=== PATIENT | male | born 1995 | race Asian ===

== ENCOUNTER 2019-01-07 04:25 | Emergency (ER) | payer OTHER ==
[~2019-01-07] VITALS: Ht 182.9 cm; Wt 102.3 kg
[~2019-01-07 04:25] MED LIST: AMOXICILLIN 8751 TAB PO; AMOXICILLIN875 MG PO; TUSS PO
[2019-01-07 04:38] VITALS: BP 178/98; TEMP 97.9
[2019-01-07] MEDS ORDERED: PERCOCET 325 MG1 TA2 PO (05:51)
[2019-01-07 06:35] VITALS: PULSE 92
== END 2019-01-07 06:36 | disposition home or self-care (01) ==
LOC: COL.ER 04:25
DX: T23.241A Burn of second degree of multiple right fingers (nail), including thumb, initial encounter (principal); T23.321A Burn of third degree of single right finger (nail) except thumb, initial encounter; T31.0 Burns involving less than 10% of body surface; Z23 Encounter for immunization; X10.2XXA Contact with fats and cooking oils, initial encounter; Y93.G3 Activity, cooking and baking; Y92.009 Unspecified place in unspecified non-institutional (private) residence as the place of occurrence of the external cause

== ENCOUNTER 2019-02-26 02:44 | Emergency (ER) | payer OTHER ==
[~2019-02-26] VITALS: Ht 182.9 cm; Wt 102.3 kg
[~2019-02-26 02:44] MED LIST changes: +PERCOCET 325 MG1 TA2 PO
[2019-02-26 02:55] VITALS: TEMP 97
[2019-02-26 03:14] LABS: COLLECTION METHOD CLEAN CATCH
[2019-02-26] MEDS ORDERED: FLEXERIL 1010 MG/TAB PO (03:16)
[2019-02-26 03:30] LABS: PH 6 (5-8); SQUAMOUS EPITHELIAL None Seen /hpf; URINE APPEARANCE Clear; URINE BACTERIA None Seen /hpf; URINE BILIRUBIN Negative (NEGATIVE); URINE BLOOD Negative (NEGATIVE); URINE COLOR Yellow; URINE GLUCOSE Negative (NEGATIVE); URINE KETONE Negative (NEGATIVE); URINE LEUKOCYTE ESTERASE Negative (NEGATIVE); URINE NITRATE Negative (NEGATIVE); URINE PROTEIN(semi-quant) Negative (NEGATIVE); URINE RBC 0-2 /hpf; URINE UROBILINOGEN Negative (NEGATIVE)
[2019-02-26 04:14] VITALS: BP 139/83; PULSE 76
== END 2019-02-26 04:18 | disposition home or self-care (01) ==
LOC: COL.ER 02:44
PROVIDERS: Emergency Medicine
DX: M54.5 Low back pain (principal)
CPT/HCPCS: J1885

== ENCOUNTER 2021-01-10 01:35 | Emergency (ER) | payer OTHER ==
[~2021-01-10] VITALS: Ht 182.9 cm; Wt 73.5 kg
[~2021-01-10 01:35] MED LIST changes: +FLEXERIL 1010 MG/TAB PO
[2021-01-10 01:39] VITALS: TEMP 98.7
[2021-01-10 02:03] LABS: BASO % 0.4 % (0.0-2.0); EOS # 0.4 (0.0-0.7); EOS % 3.8 % (0-4.0); GRAN # 5.4 (1.4-6.5); HEMATOCRIT 47.3 % (42.0-52.0); HEMOGLOBIN 15.5 g/dl (13.5-18.0); LYMPH # 2.4 (1.2-3.4); LYMPH % 26.4 % (20.0-51.0); MEAN CELL VOLUME 84 fl (80.0-100.0); MEAN CORPUSCULAR HEMOGLOBIN 27 pg (27.0-31.0); MEAN CORPUSCULAR HGB CONC 33 g/dl (33.0-37.0); MEAN PLATELET VOLUME 9.9 fl (7.4-10.4); MONO # 0.9 (0.1-0.6); MONO % 10.1 % (1.7-9.3); PLATELET COUNT 240 K/mm3 (130-400); RED BLOOD COUNT 5.66 M/mm3 (4.20-5.60); REDCELL DISTRIBUTION WIDTH-CV 13.5 % (11.5-14.5)
[2021-01-10 02:13] LABS: ALANINE AMINOTRANSFERASE 33 U/L (4-49); ALBUMIN 4.7 gm/dL (3.5-5.0); ALKALINE PHOSPHATASE 55 U/L (50-136); ANION GAP 9 mmol/L (7-16); AST,SGOT 48 U/L (15-37); BILIRUBIN,TOTAL 0.5 mg/dL (0.0-1.0); BLOOD UREA NITROGEN 13 mg/dL (9-20); CALCIUM 9.2 mg/dL (8.4-10.2); CARBON DIOXIDE 28 mmol/L (22-30); CHLORIDE 103 mmol/L (98-107); CREATININE, serum 0.86 (0.66-1.25); GLUCOSE 104 mg/dL (74-106); POTASSIUM 3.7 mmol/L (3.4-5.0); SODIUM 140 mmol/L (137-145); TOTAL PROTEIN 7.6 gm/dL (6.4-8.2)
[2021-01-10 02:25] LABS: TROPONIN-I < 0.012 ng/mL (0.000-0.035)
[2021-01-10] MEDS ORDERED: NAPROSYN500 MG PO (02:35)
[2021-01-10 02:45] VITALS: BP 134/86; PULSE 89
== END 2021-01-10 03:00 | disposition home or self-care (01) ==
LOC: COL.ER 01:35
PROVIDERS: Family Medicine
DX: R07.89 Other chest pain (principal)
CPT/HCPCS: J1885